=== PATIENT | female | born 1995 ===

== ENCOUNTER 2017-12-09 22:27 | Emergency (ER) | payer OTHER ==
--- NOTE | 2017-12-09 23:03 | C.PDOC ---
History Of Present Illness 22yo female, presents to ER for evaluation of a left forearm cat bite. Patient took the cat in to feed it and was petting it from the bat when she was bitten. Pt states she knows the cat as it is a neighboring cat. Patient also reports her tetanus vaccination is up to date. She has no other medical complaints. Time Seen by Provider: 12/09/17 22:48 Chief Complaint (Nursing): Bite History Per: Patient History/Exam Limitations: no limitations Onset/Duration Of Symptoms: Mins Current Symptoms Are (Timing): Still Present - Animal Bite Description Of The Animal: Neighbor's Pet Reports Animal Appears: Well Past Medical History Reviewed: Historical Data, Nursing Documentation, Vital Signs Vital Signs: Last Vital Signs Temp 98.2 F 12/09/17 23:44 Pulse 80 12/09/17 23:44 Resp 14 12/09/17 23:44 BP 110/70 12/09/17 23:44 Pulse Ox 100 12/10/17 20:49 - Medical History PMH: No Chronic Diseases Surgical History: No Surg Hx Family History: States: No Known Family Hx - Social History Hx Alcohol Use: No (used to) Hx Substance Use: No Review Of Systems Except As Marked, All Systems Reviewed And Found Negative. Constitutional: Negative for: Fever, Chills Skin: Positive for: Other (cat bite to left forearm) Physical Exam - Physical Exam Appears: Non-toxic, No Acute Distress Skin: Normal Color, Other (small puncture wound to dorsal forearm- distally, superficial abrasions left forearm anterior aspect, no streaking) Head: Normacephalic Eye(s): bilateral: Normal Inspection Neck: Supple Extremity: Normal ROM Neurological/Psych: Oriented x3 ED Course And Treatment O2 Sat by Pulse Oximetry: 100 (RA) Pulse Ox Interpretation: Normal Progress Note: Patient offered rabies vaccinations, and states she prefers to observe cat at home and will come to ER if anything changes. Patient informed on need for followup and expresses understanding. Stable for discharge home. Disposition Counseled Patient/Family Regarding: Diagnosis, Need For Followup, Rx Given - Disposition Disposition: HOME/ ROUTINE Disposition Time: 23:03 Condition: STABLE Additional Instructions: Keep wound clean, Apply bacitracin or neosporin oint Tylenol or advil for pain Observe cat or call animal control to pe[employer] picker cat Return to ER if increase redness, swelling or worse Prescriptions: Amoxicillin/Clavulanate [Augmentin 875 MG-125 MG] 1 tab PO BID #14 tab Instructions: Animal Bites (DC) Forms: [employer] ([place]) - Clinical Impression Clinical Impression: Animal bite wound - 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 - Scribe Statement The provider has reviewed the documentation as recorded by the Scribe (Tara Baron) Provider Attestation: All medical record entries made by the Scribe were at my direction and personally dictated by me. I have reviewed the chart and agree that the record accurately reflects my personal performance of the history, physical exam, medical decision making, and the department course for this patient. I have also personally directed, reviewed, and agree with the discharge instructions and disposition.
[2017-12-09] MEDS ORDERED: Amoxicillin-Clav 875-125 mg Tab PO STA (23:05)
[2017-12-09] MEDS ORDERED: Bacitracin 500 Units/gm Oint Foilpak UD ONE (23:09)
[2017-12-09] MEDS ORDERED: Amoxicillin-Clav 875-125 mg Tab PO ONE (23:18)
[2017-12-09 23:45] VITALS: BP 110/70; PULSE 80; RESP 14; TEMP 98.2
[2017-12-10 06:57] VITALS: O2SAT 100
== END 2017-12-09 23:45 | disposition home or self-care (01) ==
LOC: C.ER 22:27
DX: S51.852A Open bite of left forearm, initial encounter (principal); W55.01XA Bitten by cat, initial encounter